=== PATIENT | male | born 2000 ===

== ENCOUNTER 2024-06-30 12:10 | Emergency (ER) | payer SELFPAY ==
[2024-06-30 12:25] VITALS: BP 137/91
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
== END 2024-07-01 04:45 ==
LOC: EMR 12:10
PROVIDERS: EMERGENCY PHYSICIAN Emergency Medicine; OTHER PHYSICIAN Psychiatry & Neurology Psychiatry
DX: F29 Unspecified psychosis not due to a substance or known physiological condition (principal)
CPT/HCPCS: 99285